=== PATIENT | female | born 1990 | race Caucasian/White ===

== ENCOUNTER 2016-11-16 05:16 | Inpatient (IN) | payer OTHER ==
[~2016-11-16] VITALS: Ht 172.7 cm; Wt 98.4 kg
[2016-11-17 02:44] LABS: HEMOGLOBIN 9.5 gm/dl (12.3-15.3)
== END 2016-11-18 14:03 | disposition home or self-care (01) | DRG 766 ==
LOC: OB 05:16
PROVIDERS: ADMIT Obstetrics & Gynecology
PROC: 10D00Z1 Extraction of Products of Conception, Low, Open Approach (ICD-10-PCS; principal; 2016-11-16 07:30)
DX: O34.211 Maternal care for low transverse scar from previous cesarean delivery (principal); N85.8 Other specified noninflammatory disorders of uterus; O36.63X0 Maternal care for excessive fetal growth, third trimester, not applicable or unspecified; Z3A.39 39 weeks gestation of pregnancy; Z37.0 Single live birth; O99.820 Streptococcus B carrier state complicating pregnancy
CPT/HCPCS: 36415; 81001; 82800; 85014; 85018; 85025; 85461; 86850; 86900; 86901; C9113; J0690; J2405; J2590; J2765; J2790; J3430; J7120